=== PATIENT | male | born 1985 | race Two or more races ===

== ENCOUNTER 2018-04-12 21:19 | Emergency (ER) | payer SELFPAY ==
[~2018-04-12] VITALS: Ht 188 cm; Wt 95.3 kg
[2018-04-12] MEDS ORDERED: DEPO-TESTOSTER100 MG IM (21:29)
[2018-04-12] MEDS ORDERED: MUPIROCIN22 GM TOPIC (22:17)
[2018-04-12] MEDS ORDERED: CLINDAMYCIN HC300 MG ORAL (22:17)
[2018-04-12] MEDS ORDERED: HYDROCODON-ACE1 EA15 ORAL (22:17)
--- NOTE | 2018-04-12 22:18 | Emergency Room Report ---
History of Present Illness General Chief Complaint: Lower Extremity Injury Source: Patient Present Illness HPI Is a 33-year-old male with no past medical history. He presents with chief complaint of redness and swelling to the left calf area. He injected steroid in that area. His been swollen for last 2 weeks but redness started 2 days ago. Increasing pain. He is currently taking Bactrim for last 2 days without any relief. No drainage but no fever chills but denies any other complaint. Pain is 7 out of 10. worse With palpation. Allergies: Coded Allergies: No Known Allergies (Unverified , 04/12/18) Patient History Past Medical History: see triage record, old chart reviewed Past Surgical History: none Pertinent Family History: none Social History: Denies: smoking Immunizations: other Reviewed Nursing Documentation: PMH: Agreed; PSxH: Agreed Nursing Documentation-PMH Past Medical History: No Stated History Review of Systems Eye: Denies: eye pain, blurred vision ENT: Denies: ear pain, nose congestion, throat swelling Respiratory: Denies: cough, shortness of breath Cardiovascular: Denies: chest pain, palpitations Gastrointestinal: Denies: abdominal pain, diarrhea, nausea, vomiting Musculoskeletal: Reports: muscle pain; Denies: back pain, joint pain Skin: Denies: rash Neurological: Denies: headache, numbness Endocrine: Denies: increased thirst, increased urine Hematologic/Lymphatic: Denies: easy bruising All Other Systems: negative except mentioned in HPI Physical Exam Vital Signs Date Time Temp Pulse Resp B/P (MAP) Pulse Ox O2 Delivery O2 Flow Rate FiO2 04/12/18 21:22 99.1 66 23 133/106 95 vitals normal Sp02 EP Interpretation: reviewed, normal General Appearance: well appearing, no apparent distress, alert Head: normocephalic, atraumatic Eyes: bilateral eye PERRL, bilateral eye EOMI ENT: hearing grossly normal, normal pharynx Neck: full range of motion, supple, no meningismus Respiratory: chest non-tender, lungs clear, normal breath sounds Cardiovascular #1: regular rate, rhythm, no murmur Gastrointestinal: normal bowel sounds, non tender, no mass, no organomegaly, no bruit, non-distended Musculoskeletal: back normal, gait/station normal, normal range of motion, other - Left calf: Over the proximal calf, there is an erythematous area about 4 cm. There is tightness to the calf area. No fluctuant. No crepitance. Psychiatric: mood/affect normal Skin: warm/dry Procedures Incision and Drainage Incision and Drainage : Consent: Verbal Site: Left leg Blade Size: 11 I & D Procedure: betadine prep Wound Location: lower extremity Anesthesia: 1% Lidocaine Patient Tolerated: Well Complications: None Progress Area clean with Betadine. Local anesthetic with 1% lidocaine with out epinephrine. I aspirated initially with 18-gauge needle. There was old blood that was aspirated. When I push on the calf. There is more blood expressed and then yellowish whitish discharge. I did made a 1 cm incision with a scalpel. Is able to express the infected hematoma. Patient tolerated procedure without a problem. Medical Decision Making Diagnostic Impression: Primary Impression: Infection of hematoma of wound ER Course Patient with an infected hematoma from steroid injection. No evidence of any necrotizing fasciitis or DVT. We'll discharge home. Last Vital Signs Date Time Temp Pulse Resp B/P (MAP) Pulse Ox O2 Delivery O2 Flow Rate FiO2 04/12/18 21:22 99.1 66 23 133/106 95 Status: improved Disposition: HOME, SELF-CARE Condition: Stable Scripts Mupirocin* (MUPIROCIN*) 22 Gm Oint...g. 1 APPLIC TOPIC THREE TIMES A DAY, #22 GM Prov: Jayson Acosta MD 04/12/18 Hydrocodone/Acetaminophen 5-325* (HYDROCODONE/ACETAMINOPHEN 5-325*) 1 Each Tablet 1 TAB ORAL Q6H PRN for For Pain, #10 TAB 0 Refills Prov: Jayson Acosta MD 04/12/18 Clindamycin Hcl (CLINDAMYCIN HCL) 300 Mg Capsule 300 MG ORAL THREE TIMES A DAY, #21 CAP Prov: Jayson Acosta MD 04/12/18 Referrals: NOT CHOSEN IPA/,REFERRING (PCP) Additional Instructions: Keep wound clean. Clean with hydrogen peroxide first, then apply antibiotic ointment. Take new antibiotic. Follow-up your doctor in 7 days for recheck. Return if worse. Jayson Acosta MD Apr 12, 2018 22:18
[2018-04-12 22:27] VITALS: BP 128/97
--- NOTE | 2018-04-12 22:28 | NUR ---
ER DISCHARGE NOTE: Patient is cleared to be discharged per ERMD, pt is aox4, on room air, with stable vital signs. pt was given dc and prescription instructions, pt was able to verbalize understanding, pt id band removed without complications. pt is able to ambulate with steady gait. pt took all belongings.
== END 2018-04-12 22:29 | disposition home or self-care (01) ==
LOC: EMR 21:56
DX: L08.9 Local infection of the skin and subcutaneous tissue, unspecified (principal)
CPT/HCPCS: 99283